=== PATIENT | female | born 1940 | race Caucasian/White ===

== ENCOUNTER 2017-07-05 09:59 | Outpatient (CLI) | payer MEDICARE, BC | END 2017-07-05 10:00 | disposition home or self-care (01) | LOC: BICMAMMO 09:59 | PROVIDERS: ATTEND Internal Medicine | DX: Z12.31 Encounter for screening mammogram for malignant neoplasm of breast (principal); M81.0 Age-related osteoporosis without current pathological fracture; R92.1 Mammographic calcification found on diagnostic imaging of breast; Z80.3 Family history of malignant neoplasm of breast; Z85.89 Personal history of malignant neoplasm of other organs and systems | CPT/HCPCS: 77063; 77067; 77080 ==

== ENCOUNTER 2018-03-14 10:32 | Outpatient (CLI) | payer MEDICARE, BC ==
[2018-03-14] MEDS ORDERED: ISOVUE-370 76%-LOCM 1 ML ONE (13:27)
--- NOTE | 2018-03-14 14:43 | CT ---
CT ANGIOGRAM ABDOMEN AND PELVIS WITH IV CONTRAST AND 3D RECONSTRUCTIONS CT ANGIOGRAM BILATERAL LOWER EXTREMITIES WITH RUNOFF TO THE FEET WITH IV COTNRAST AND 3D RECONSTRUCTI ONS: DATE: 03/14/2018. 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 Right leg and right foot pain for mon ths. History of coronary artery disease and prior CABG. FINDINGS: CTA ABDOMEN AND PELVIS: Postsurgical changes related to CABG are noted. There are linear bibasilar densities which may be related to mild scarring and/or atelectasis. There is severe right convex rotoscoliosis of the thoracolumbar spine with multilevel degenerative ch anges seen throughout the visualized thoracic and lumbar spine with mild height loss of a few lower t horacic and upper lumbar vertebral bodies which may be related to mild compression deformities of ind eterminate age. FINDINGS: Calcified granuloma is seen in the liver. Subcentimeter too small to characterize hypodense lesion is seen in the superior pole left kidney. The spleen, pancreas, bilateral adrenal glands, right kidney, and incompletely distended urinary blad rose marie demonstrate a grossly normal CT appearance for arterial phase of imaging. There is colonic diverticulosis present. There is tortuosity of the thoracic aorta related to the scoliotic curvature. Dense atherosclerotic vascular calcifications are seen throughout the abdominal aorta as well as involving the iliac arteri es. There are dense vascular calcifications at the origin of the celiac artery with at least mild an d possibly moderate narrowing at the origin. There is moderate stenosis involving the origin and pro ximal SMA. The origin of the ZO is not well seen due to dense vascular calcifications but does appe ar grossly patent. Single renal arteries are seen bilaterally with mild to moderate narrowing involving the origin of th e right renal artery with focal area of irregularity involving the proximal left renal artery suggest ing mild to moderate narrowing as well. Dense vascular calcifications are seen in the iliac arteries, but no significant focal stenosis is ap preciated. The origins of the internal iliac arteries are obscured due to dense vascular calcificati ons. CTA BILATERAL LOWER EXTREMITIES: RIGHT LOWER EXTREMITY: There is a right total knee prosthesis which obscures the popliteal artery at the level of the knee j oint. Dense vascular calcifications are seen in the right common femoral artery with mild narrowing distall y. The profunda femoral artery does appear patent. There is mild narrowing involving the distal rig ht SFA, but the SFA is otherwise patent. There is a mild to moderate focal area of narrowing involvi ng the above the knee popliteal artery with atherosclerotic irregularity and mild to moderate narrowi ng also involving the below the knee right lower extremity popliteal artery. There is also prominent atherosclerotic irregularity involving the tibioperoneal trunk with at least mild and possible moder ate narrowing. The right posterior tibial artery is occluded at the origin and proximally with recon stitution at the level of the mid calf. The posterior tibial artery is otherwise seen to the level o f the ankle and foot. The origin of the right anterior tibial artery demonstrates mild narrowing and there is a segment of occlusion measuring approximately 6 cm in length with reconstitution of the di stal anterior tibial artery and the dorsalis pedis artery, although small in caliber, s seen at the l evel of the ankle and foot. LEFT LOWER EXTREMITY: There are atherosclerotic calcifications in the left common femoral artery with only mild degrees of narrowing. The left profunda femoral and superficial femoral arteries are patent with mild atheroscl erotic irregularity of the distal left SFA. There is mild atherosclerotic plaque involving the left popliteal artery. The popliteal artery at the level of the knee prosthesis is not well visualized, b ut the visualized portions of the popliteal artery are patent with atherosclerotic irregularity invol ving the tibioperoneal trunk. The anterior tibial artery occludes at the level of the proximal calf. There is 2-vessel runoff to the left lower extremity via the peroneal and posterior tibial arteries . IMPRESSION: 1. Atherosclerotic irregularity and narrowing involving the origin of the celiac artery with at leas t mild narrowing present. There is mild to moderate narrowing involving the proximal superior mesent tierney artery. 2. Prominent calcified plaque at the origin and proximal single right renal artery limiting evaluati on of the lumen, but thee is probably at least moderate narrowing of the right renal artery. There i s a mild to moderate focal area of narrowing involving the proximal left renal artery. 3. Exclusion of portions of the popliteal arteries bilaterally due to streak artifact from bilateral knee prostheses. 4. Prominent atherosclerotic irregularity involving the region of the tibioperoneal trunks bilateral ly. There is an occlusion measuring approximately 6 cm in length involving the right anterior tibial artery, and the right posterior tibial artery at the origin and proximally is also occluded with rec onstruction of the right posterior tibial artery at the level of the mid calf. The right peroneal ar iliana appears patent. 5. Occlusion of the left anterior tibial artery with 2-vessel runoff to the left lower extremity via the peroneal and posterior tibial arteries. 6. Severe right convex rotoscoliosis of the thoracolumbar spine with multilevel degenerative changes and vertebral body height loss which may be related to mild compression deformity of indeterminate a ge. POS: RIP
== END 2018-03-14 10:33 | disposition home or self-care (01) ==
LOC: BICCT 10:32
PROVIDERS: ATTEND Internal Medicine Cardiovascular Disease
DX: I70.211 Atherosclerosis of native arteries of extremities with intermittent claudication, right leg (principal); I77.4 Celiac artery compression syndrome; K55.1 Chronic vascular disorders of intestine; I70.1 Atherosclerosis of renal artery; I70.8 Atherosclerosis of other arteries; M41.9 Scoliosis, unspecified; M47.895 Other spondylosis, thoracolumbar region
CPT/HCPCS: 75635; 82565

== ENCOUNTER 2018-10-08 11:15 | Outpatient (CLI) | payer MEDICARE, BC ==
--- NOTE | 2018-10-08 13:21 | MMO ---
Bilateral MAMMO Bilat Screen [facility]. CLINICAL HISTORY: Patient is 78 years old and is seen for screening. The patient has the following family history of breast cancer: cousin gender unknown; second cousin and maternal aunt. The patient has a history of other cancer. The patient has a history of bilateral Cyst Aspiration in 1970 - benign. VIEWS: The views performed were: bilateral craniocaudal with tomosynthesis and bilateral mediolateral oblique with tomosynthesis. FILMS COMPARED: The present examination has been compared to prior imaging studies performed at [facility] on 05/24/2009, 07/04/2010, 10/24/2011, 04/05/2014 and 07/05/2017. MAMMOGRAM FINDINGS: The breasts are heterogeneously dense, which could obscure a lesion on mammography. There are stable benign appearing calcifications seen in both breasts. There are no suspicious masses, suspicious calcifications, or new areas of architectural distortion. IMPRESSION: THERE IS NO MAMMOGRAPHIC EVIDENCE OF MALIGNANCY. A ROUTINE FOLLOW-UP MAMMOGRAM IN 1 YEAR IS RECOMMENDED. THE RESULTS OF THIS EXAM WERE SENT TO THE PATIENT. ACR BI-RADS Category 2 - Benign finding MAMMOGRAPHY NOTE: 1. A negative mammogram report should not delay a biopsy if a dominant of clinically suspicious mass is present. 2. Approximately 10% to 15% of breast cancers are not detected by mammography. 3. Adenosis and dense breasts may obscure an underlying neoplasm.
== END 2018-10-08 11:16 | disposition home or self-care (01) ==
LOC: BICMAMMO 11:15
PROVIDERS: ATTEND Internal Medicine
DX: Z12.31 Encounter for screening mammogram for malignant neoplasm of breast (principal); Z80.3 Family history of malignant neoplasm of breast; Z85.89 Personal history of malignant neoplasm of other organs and systems
CPT/HCPCS: 77063; 77067

== ENCOUNTER 2019-01-06 09:54 | Outpatient (CLI) | payer MEDICARE, BC ==
--- NOTE | 2019-01-07 15:11 | RAD ---
Modified barium swallow HISTORY: Dysphagia. Feeding difficulties. R49.0. FINDINGS: Exam was performed by speech pathology with multiple consistencies. Video review is availab le and demonstrates early spill of contrast to the level of the piriform sinuses. Mild to moderate penetration early on with barium paste. With barium liquids, there was penetration, approaching the l arynx. Coughing by the patient implies that aspiration did occur. Eventually, thin liquid did extend below the larynx, coating the anterior aspect of the upper trachea. There is incomplete cleari ng upon secondary swallowing. The esophagus below the left level of the hypopharynx was not evaluated. Fluoroscopy time 42 seconds. Please see separate detailed report from speech pathology.
== END 2019-01-06 09:55 | disposition home or self-care (01) ==
PROVIDERS: ATTEND Otolaryngology Otolaryngic Allergy
DX: R13.10 Dysphagia, unspecified (principal); R49.0 Dysphonia
CPT/HCPCS: 74230

== ENCOUNTER 2019-08-12 10:44 | Outpatient (CLI) | payer MEDICARE, BC ==
--- NOTE | 2019-08-12 15:19 | RAD ---
RADIOGRAPH CERVICAL SPINE 4 VIEWS: DATE: 08/12/2019 HISTORY: 79-year-old female with known type II odontoid fracture S 12.110D Subluxation of C1/C2 cervical vertebrae, subsequent encounter S 13.120D COMPARISON: None TECHNIQUE: Total of 7 images submitted. AP, odontoid, swimmers. Lateral views in neutral, flexion, and extension. FINDINGS: C1 and the superior portion of the odontoid process, along with the entire skull, are displaced one f ull bone width posteriorly relative to the body of C2. There is no change in this relationship between flexion and extension. There is limited range of motion. There is exaggerated lordosis of the mid-upper cervical spine. Grade 1 anterolisthesis of C4 on C5 due to facet DJD becomes slightly worse during flexion and reduces in neutral and extension. Moderate disc space narrowing with posteri or endplate marginal osteophytes encroaching upon anterior aspect of spinal canal at C5-6 and C6-7. No prevertebral soft tissue swelling. Multilevel bilateral facet DJD. IMPRESSION: 1) completely displaced type II odontoid fracture 2) cervical spondylosis with moderate-severe degenerative disc disease at C5-6 and C6-7, and multilev el high-grade bilateral facet osteoarthrosis 3) chronic spondylolisthesis at C4-5 due to facet osteoarthrosis. This is slightly unstable.
== END 2019-08-12 10:45 | disposition home or self-care (01) ==
LOC: TBSIIMAG 10:44
PROVIDERS: ATTEND Neurological Surgery
DX: S12.110D Anterior displaced Type II dens fracture, subsequent encounter for fracture with routine healing (principal); S13.120D Subluxation of C1/C2 cervical vertebrae, subsequent encounter; M47.812 Spondylosis without myelopathy or radiculopathy, cervical region; M50.322 Other cervical disc degeneration at C5-C6 level; M50.323 Other cervical disc degeneration at C6-C7 level; M43.12 Spondylolisthesis, cervical region
CPT/HCPCS: 72050